=== PATIENT | male | born 1995 | race Caucasian/White ===

== ENCOUNTER 2018-06-04 18:35 | Emergency (ER) | payer SELFPAY ==
[2018-06-04] MEDS ORDERED: BUFFERED LIDOCAINE 10 ML SYRINGE SUBQ STA (18:54)
--- NOTE | 2018-06-04 18:55 | ED Physician Documentation ---
PD HPI UPPER EXT INJURY - Stated complaint Stated Complaint: LT HAND FINGER LAC - Chief complaint Chief Complaint: Laceration - History obtained from History obtained from: Patient - History of Present Illness Location: Left (This is a right-handed gentleman who is up-to-date on tetanus who cut the left index finger on a lens grinder wheel just prior to arrival.) Review of Systems Constitutional: reports: Reviewed and negative Cardiac: reports: Reviewed and negative Respiratory: reports: Reviewed and negative PD PAST MEDICAL HISTORY - Present Medications Home Medications: Ambulatory Orders Medication Instructions Recorded Confirmed Cephalexin [Keflex] 500 mg PO Q6H #28 capsule 06/04/18 - Allergies Allergies/Adverse Reactions: Allergies Allergy/AdvReac Type Severity Reaction Status Date / Time Sulfa (Sulfonamide Allergy Unknown Verified 06/04/18 19:27 Antibiotics) PD ED PE NORMAL - Vitals Vital signs reviewed: Yes - General General: Alert and oriented X 3, No acute distress - Extremities Extremities: Other (Left middle finger: Over the middle phalanx, ulnar side dorsal there is an oblique 2 cm shallow laceration without distal neurovascular compromise.) - Neuro Neuro: Alert and oriented X 3, Normal speech Results - Vitals Vitals: Vital Signs - 24 hr 06/04/18 18:50 Temperature 36.8 C Heart Rate 106 H Respiratory 16 Rate Blood Pressure 147/90 H O2 Saturation 99 Oxygen O2 Source Room air Procedures - Laceration (location) L 2nd finger Length in cm: 2 Wound type: Linear Neurovascular status: Sensory intact, Motor intact Tendon involvement: Tendon Injury Anesthesia: Lidocaine 1%, With bicarb Wound Preparation: Chlorhexadine, Irrigated copiously NS, Debrided extensively Skin layer closure: Nylon, Interrupted, Size #-0 - enter number (4-0), Sutures - enter # (5) Other: Patient tolerated well, No complications, Neurovascular intact, Tetanus UTD Complexity: Simple - Splint (location) L 2nd finger Splint applied by: Tech Type of splint: Metal foam finger splint Other: Patient tolerated well, No complications, Neurovascular intact PD MEDICAL DECISION MAKING - ED course ED course: 23-year-old gentleman with a nondominant second finger injury. On exploration he had about a 40% extensor tendon laceration. The wound was irrigated copiously with saline under pressure and there were bits of grit in it that were debrided. It was closed with sutures. The orthopedic surgeon, Dr. Thorne was consulted and will see the patient in the office. It was placed in a splint in extension. Departure - Departure Disposition: 01 Home, Self Care Clinical Impression: Finger, open wounds with tendon injury Qualifiers: Encounter type: initial encounter Qualified Code(s): S61.209A - Unspecified open wound of unspecified finger without damage to nail, initial encounter Condition: Good Record reviewed to determine appropriate education?: Yes Instructions: ED Laceration Hand Follow-Up: Erwin Thorne MD [Provider Admit Priv/Credential] - (CALL TOMORROW FOR APPOINTMENT IN THE NEXT FEW DAYS) Prescriptions: Cephalexin [Keflex] 500 mg PO Q6H #28 capsule Comments: Keep the splint on and dry, do not work with that hand. Call the orthopedics office tomorrow for an appoint with Dr. Thorne in the next few days. Return for new or worsening symptoms, especially fever, redness, increased pain or swelling. Elevated as much as possible. Forms: Activity restrictions
[2018-06-04] MEDS ORDERED: cephALEXin 250 MG CAPSULE PO STA (19:26)
[2018-06-04 19:37] VITALS: BP 132/78
== END 2018-06-04 19:46 | disposition home or self-care (01) ==
LOC: ED 18:35
DX: S61.211A Laceration without foreign body of left index finger without damage to nail, initial encounter (principal); W31.2XXA Contact with powered woodworking and forming machines, initial encounter
CPT/HCPCS: 12001; 99283; A9270

== ENCOUNTER 2020-02-21 13:22 | Emergency (ER) | payer SELFPAY ==
[2020-02-21 13:38] VITALS: BP 118/62
[2020-02-21] MEDS ORDERED: BUFFERED LIDOCAINE 10 ML SYRINGE SUBQ STA (13:45)
--- NOTE | 2020-02-21 13:46 | ED Physician Documentation ---
PD HPI UPPER EXT INJURY - Stated complaint Stated Complaint: RT HAND LAC - Chief complaint Chief Complaint: Laceration - History obtained from History obtained from: Patient (24-year-old gentleman who is up-to-date on tetanus cut his right hand on a broken dish at home about an hour and a half ago.) Review of Systems Ten Systems: 10 systems reviewed and negative Constitutional: denies: Fever, Chills Cardiac: reports: Reviewed and negative Respiratory: reports: Reviewed and negative PD PAST MEDICAL HISTORY - Past Surgical History Past Surgical History: No - Present Medications Home Medications: Ambulatory Orders Medication Instructions Recorded Confirmed Cephalexin [Keflex] 500 mg PO Q6H #28 capsule 06/04/18 - Allergies Allergies/Adverse Reactions: Allergies Allergy/AdvReac Type Severity Reaction Status Date / Time Sulfa (Sulfonamide Allergy Unknown Verified 02/21/20 13:36 Antibiotics) - Social History Does the pt smoke?: No Smoking Status: Never smoker Does the pt drink ETOH?: No Does the pt have substance abuse?: No - Immunizations Immunizations are current?: Yes - POLST Patient has POLST: No PD ED PE NORMAL - Vitals Vital signs reviewed: Yes - General General: Alert and oriented X 3, No acute distress - Extremities Extremities: Other (1.5 cm laceration on the medial palmar surface of the right hand just proximal to the fifth MCP. No distal neurovascular compromise.) - Neuro Neuro: Alert and oriented X 3, Normal speech Results - Vitals Vitals: Vital Signs - 24 hr 02/21/20 13:36 Temperature 36.5 C Heart Rate 65 Respiratory 16 Rate Blood Pressure 118/62 O2 Saturation 99 Oxygen O2 Source Room air Procedures - Laceration (location) R hand Length in cm: 1.5 Wound type: Linear, Into subcut fat Neurovascular status: Sensory intact, Motor intact, Vascular intact Anesthesia: Lidocaine 1%, With bicarb Wound Preparation: Irrigated copiously NS Skin layer closure: Nylon, Interrupted, Size #-0 - enter number (4-0), Sutures - enter # (5) Other: Tetanus UTD Complexity: Simple Departure - Departure Disposition: 01 Home, Self Care Clinical Impression: Laceration Condition: Good Record reviewed to determine appropriate education?: Yes Instructions: ED Laceration Hand Comments: Come back for any signs of infection which would include: Redness, swelling, drainage, increased pain, or fevers. You can wash it soap and water. Keep it covered and moist with bacitracin ointment which is available over the counter; avoid neosporin. Follow-up with your physician in 14 days for suture removal.
== END 2020-02-21 14:22 | disposition home or self-care (01) ==
LOC: ED 13:22
DX: S61.411A Laceration without foreign body of right hand, initial encounter (principal); W26.8XXA Contact with other sharp object(s), not elsewhere classified, initial encounter; Y93.G1 Activity, food preparation and clean up; Y92.009 Unspecified place in unspecified non-institutional (private) residence as the place of occurrence of the external cause
CPT/HCPCS: 12001; 99281; 99282

== ENCOUNTER 2023-11-14 14:36 | Emergency (ER) | payer MEDICAID ==
[2023-11-14 14:46] VITALS: BP 135/67; O2SAT 99
[2023-11-14 15:16] LABS: BASOPHILS % (AUTO) 0.4 %; EOSINOPHILS % (AUTO) 0.3 %; HCT - HEMATOCRIT 41.8 % (42.0-52.0); HGB - HEMOGLOBIN 14.7 g/dL (14.0-18.0); LYMPHOCYTES # (AUTO) 0.8 10^3/uL (1.5-3.5); LYMPHOCYTES % (AUTO) 12.1 %; MEAN CORPUSCULAR HEMOGLOBIN 29.5 pg (27.0-31.0); MEAN CORPUSCULAR HGB CONC 35.2 g/dL (32.0-36.0); MEAN CORPUSCULAR VOLUME 83.9 fL (80.0-94.0); MEAN PLATELET VOLUME 9.6 fL (7.4-11.4); MONOCYTES # (AUTO) 0.7 10^3/uL (0.0-1.0); MONOCYTES % (AUTO) 10.2 %; NEUTROPHILS # (AUTO) 5.2 10^3/uL (1.5-6.6); NEUTROPHILS % (AUTO) 76.9 %; PLT - PLATELET COUNT 188 10^3/uL (130-450); RED BLOOD COUNT 4.98 10^6/uL (4.70-6.10); WHITE BLOOD COUNT 6.8 x10^3/uL (4.8-10.8)
--- NOTE | 2023-11-14 15:20 | ED Physician Documentation ---
History of Present Illness - Stated complaint Stated Complaint: SOA,STOMACH PX - Chief complaint Chief Complaint: Abd Pain - Additonal information Additional information: Patient is a 28-year-old male who experienced shortness of breath and upper epigastric pain that started today. He notes symptoms started when he woke up and went to work and slowly were persistent while he was at work all day. He notes the shortness of breath while he was walking around at work. He denies any wheezing. Patient does admit to vaping but no history of smoking asthma or COPD. Patient has not tried anything for his symptoms. He feels pain in the ep igastric region worsens his shortness of breath. He denies any nausea vomiting fevers with the symptoms. No history of abdominal surgeries. He has not tried anything for his symptoms and has not found anything that makes his symptoms better or worse. PD PAST MEDICAL HISTORY - Past Surgical History Past Surgical History: No - Present Medications Home Medications: Ambulatory Orders Medication Instructions Recorded Confirmed No Known Home Medications 11/14/23 11/14/23 - Allergies Allergies/Adverse Reactions: Allergies Allergy/AdvReac Type Severity Reaction Status Date / Time Sulfa (Sulfonamide Allergy Unknown Verified 11/14/23 14:39 Antibiotics) - Social History Does the pt smoke?: No Smoking Status: Never smoker Does the pt drink ETOH?: No Does the pt have substance abuse?: No - Immunizations Immunizations are current?: Yes - POLST Patient has POLST: No PD ED PE NORMAL - Vitals Vital signs reviewed: Yes - General General: Alert and oriented X 3 - HEENT HEENT: Atraumatic, PERRL - Neck Neck: Supple, no meningeal sign - Cardiac Cardiac: RRR, No murmur, No gallop, No rub - Respiratory Respiratory: No respiratory distress, Clear bilaterally, Other - Abdomen Abdomen: Normal bowel sounds (Clear breath sounds on auscultation. Equal sounds bilaterally. No signs of respiratory distress patient saturating well on room air.), Non tender, Other - Male Male : Deferred - Rectal Rectal: Deferred - Derm Derm: Normal color, Warm and dry Results - Vitals Vitals: Oxygen O2 Source Room air - Labs Labs: Laboratory Tests 11/14/23 11/14/23 15:11 15:11 WBC 6.8 RBC 4.98 Hgb 14.7 Hct 41.8 L MCV 83.9 MCH 29.5 MCHC 35.2 RDW 13.0 Plt Count 188 MPV 9.6 Neut # (Auto) 5.2 Lymph # (Auto) 0.8 L [place] # (Auto) 0.7 Eos # (Auto) 0.0 Baso # (Auto) 0.0 Absolute Nucleated RBC 0.00 Nucleated RBC % 0.0 Sodium 134 L Potassium 3.6 Chloride 100 L Carbon Dioxide 29 Anion Gap 5.0 L BUN 7 Creatinine 0.9 Estimated GFR (MDRD) 102 Glucose 102 Calcium 9.3 Total Bilirubin 0.9 AST 13 ALT 10 Alkaline Phosphatase 83 Total Protein 6.6 Albumin 4.4 Globulin 2.2 Albumin/Globulin Ratio 2.0 Lipase < 10 L PD Medical Decision Making - ED course Complexity details: reviewed old records, reviewed results ED course: Patient is a 28-year-old male presenting to the emergency department with shortness of breath and epigastric pain. Patient's symptoms have been going on for approximately since this morning when he woke up. Patient notes symptoms worsened while he was at work walking around he felt more short of breath. He denies any fevers or chills associate with his symptoms. He denies this ever h appening before. He has a history of vaping but no history of smoking. No history of asthma or COPD. Physical exam is reassuring patient saturating well on room air no acute respiratory distress noted on examination. Labs obtained given epigastric pain showing no signs of pancreatitis no signs of infection has normal leukocytosis no concerning findings for anemia or elevation in LFTs or bilirubin. Patient's findings are reassuring chest x-ray shows no acute cardiopulmonary process. Patient received breathing treatment here in emergency department. However patient left without being updated on results or reevaluation here in the emergency department. Patient reported to nurse he was feeling better and left prior to discharge Departure - Departure Disposition: 01 Home, Self Care Forms: PCP List Discharge Date/Time: 11/14/23 16:45
[2023-11-14 15:51] LABS: ALBUMIN 4.4 g/dL (3.2-5.5); ALKALINE PHOSPHATASE 83 IU/L (42-121); ALT ALANINE AMINOTRANSFERASE 10 IU/L (10-60); AST ASPARTATE AMINOTRANSFERASE 13 IU/L (10-42); BILIRUBIN,TOTAL 0.9 mg/dL (0.2-1.0); BUN - BLOOD UREA NITROGEN 7 mg/dL (6-20); CALCIUM 9.3 mg/dL (8.5-10.3); CARBON DIOXIDE - CO2 29 mmol/L (21-32); CHLORIDE 100 mmol/L (101-111); CREATININE 0.9 mg/dL (0.6-1.3); GFR - MDRD 102 (>89); GLUCOSE 102 mg/dL (74-104); POTASSIUM 3.6 mmol/L (3.5-4.5); SODIUM 134 mmol/L (135-145); TOTAL PROTEIN 6.6 g/dL (6.4-8.9)
[2023-11-14 15:52] LABS: LIPASE < 10 U/L (11-82)
[2023-11-14] MEDS: IPRATROPIUM/ALBUTEROL 3 ML NEB INH STA (16:24)
--- NOTE | 2023-11-14 17:03 | XRAY Report ---
PROCEDURE: Chest 2V INDICATIONS: sob TECHNIQUE: 2 views of the chest were acquired. COMPARISON: None. FINDINGS: Surgical changes and devices: None. Lungs and pleura: No pleural effusions or pneumothorax. Lungs are clear. Mediastinum: Mediastinal contours appear normal. Heart size is normal. Bones and chest wall: No suspicious bony lesions. Overlying soft tissues appear unremarkable. IMPRESSION: No acute cardiopulmonary process. Reviewed by: Bijan Valdez MD on 11/14/2023 5:02 PM PDT Approved by: Bijan Valdez MD on 11/14/2023 5:02 PM PDT Station ID: [id number]
== END 2023-11-14 16:45 | disposition home or self-care (01) ==
LOC: ED 14:36
DX: R06.02 Shortness of breath (principal); R10.13 Epigastric pain; F17.290 Nicotine dependence, other tobacco product, uncomplicated
CPT/HCPCS: 36415; 80053; 83690; 85025; 94640; 94664; 99283; 99284